=== PATIENT | female | born 2000 | race Caucasian/White ===

== ENCOUNTER 2020-11-22 15:47 | Outpatient (REF) | payer BC, SELFPAY ==
[2020-11-23 15:07] LABS: COVID-19 RT-PCR UVMMC Result Negative (Negative)
== END 2020-11-22 15:48 | disposition home or self-care (01) ==
LOC: LBO 15:47
PROVIDERS: Visit Provider Physician Assistant
DX: Z20.822 Contact with and (suspected) exposure to COVID-19 (principal)
CPT/HCPCS: U0003